=== PATIENT | female | born 1945 | race Caucasian/White ===

== ENCOUNTER 2016-06-21 22:26 | Emergency (ER) | payer OTHER ==
[~2016-06-21] VITALS: Ht 167.6 cm; Wt 101.4 kg
[~2016-06-21 22:26] MED LIST: ALBU8.5H3 INH; AMLO10TA2 PO; AMLO5TAB2 PO; BACL20TA PO; FAMO40TA4 PO; FLUT1DIS3; GABA300C10 PO; GEMF600T3 PO; HALO0.5T PO; HYDR1TAB12 PO; IBUP800T PO; LEVO500T33 PO; LOSA25TA5 PO; LOSA50TA6 PO; METF500T27 PO; MONT10TA9 PO; MULT-717 PO; OMEP20TA62 PO; RANI150C PO; TRAM50TA2 PO; VENL100T PO; VENL25TA PO; VENL37.57 PO; unknown bp med
[2016-06-22] LABS: PATH.CAST-FLAG NOT PRESENT; SPERM-FLAG NOT PRESENT; SRC-FLAG NOT PRESENT; XTAL-FLAG NOT PRESENT; YLC-FLAG NOT PRESENT
[2016-06-22 00:01] LABS: HEMOGLOBIN 12.9 g/dL (11.7-16.4)
[2016-06-22 00:13] LABS: ASPARTATE AMINO TRANSFERASE 16 U/L (15-37); BLOOD UREA NITROGEN 20 mg/dL (7-18)
[2016-06-22 00:15] VITALS: BP 133/69
[2016-06-22 00:18] LABS: IS PT STATUS REG ER OR PRE ER? YES
== END 2016-06-22 01:07 | disposition home or self-care (01) ==
LOC: ED 06-22 01:01
DX: R06.00 Dyspnea, unspecified (principal); R06.02 Shortness of breath; E11.9 Type 2 diabetes mellitus without complications; J45.909 Unspecified asthma, uncomplicated; I11.9 Hypertensive heart disease without heart failure
CPT/HCPCS: 36415; 71010; 80053; 81001; 83880; 84484; 85025; 85379; 85610; 85730; 87077; 87086; 87186; 93005

== ENCOUNTER 2016-07-13 18:13 | Emergency (ER) | payer OTHER ==
[~2016-07-13] VITALS: Ht 167.6 cm; Wt 99.1 kg
[~2016-07-13 18:13] MED LIST changes: -ACET1TAB64 PO
[2016-07-13] MEDS ORDERED: ACET1TAB64 PO (19:24)
[2016-07-13 19:35] LABS: HEMOGLOBIN 12.7 g/dL (11.7-16.4)
[2016-07-13 19:50] LABS: ASPARTATE AMINO TRANSFERASE 21 U/L (15-37); BLOOD UREA NITROGEN 30 mg/dL (7-18)
[2016-07-13 21:29] VITALS: BP 154/94
[2016-07-13] MEDS ORDERED: CEFDINIR 300 MG CAPSULE PO ONE (21:30)
== END 2016-07-13 21:35 | disposition home or self-care (01) ==
LOC: ED 21:22
DX: N30.90 Cystitis, unspecified without hematuria (principal); F32.9 Major depressive disorder, single episode, unspecified; K21.9 Gastro-esophageal reflux disease without esophagitis; J45.909 Unspecified asthma, uncomplicated; G62.9 Polyneuropathy, unspecified; G89.29 Other chronic pain; E11.9 Type 2 diabetes mellitus without complications; I11.9 Hypertensive heart disease without heart failure; Z90.710 Acquired absence of both cervix and uterus; Z90.49 Acquired absence of other specified parts of digestive tract; Z85.71 Personal history of Hodgkin lymphoma
CPT/HCPCS: 36415; 80053; 81001; 85025; 87077; 87086; 87186; 93005; 99285

== ENCOUNTER → 2016-07-13 | Outpatient (CLI) | payer OTHER ==
[~2016-07-13] MED LIST changes: +ACET1TAB64 PO
== END | disposition home or self-care (01) ==
LOC: CFH 08:58
PROVIDERS: ATTEND Family Medicine
DX: M79.9 Soft tissue disorder, unspecified (principal)
CPT/HCPCS: 76700

== ENCOUNTER 2016-07-31 21:34 | Emergency (ER) | payer OTHER ==
[~2016-07-31] VITALS: Ht 165.1 cm; Wt 98.1 kg
[~2016-07-31 21:34] MED LIST changes: +ACET1TAB64 PO
[2016-07-31 21:35] VITALS: BP 160/89
[2016-07-31] MEDS ORDERED: PHENAZOPYRIDINE 200 MG TABLET PO ONE (22:00)
[2016-07-31] MEDS ORDERED: PHENAZOPYRIDINE 200 MG TABLET ONE (22:16)
== END 2016-07-31 22:58 | disposition home or self-care (01) ==
LOC: ED 22:50
DX: N39.0 Urinary tract infection, site not specified (principal); R30.0 Dysuria; E11.9 Type 2 diabetes mellitus without complications; Z90.710 Acquired absence of both cervix and uterus; Z90.49 Acquired absence of other specified parts of digestive tract
CPT/HCPCS: 81001; 87077; 87086; 87186; 99284

== ENCOUNTER 2016-08-08 15:15 | Emergency (ER) | payer OTHER ==
[~2016-08-08] VITALS: Ht 167.6 cm; Wt 97.9 kg
[2016-08-08 16:15] LABS: BLOOD UREA NITROGEN 29 mg/dL (7-18)
[2016-08-08 17:04] VITALS: BP 121/71
== END 2016-08-08 17:15 | disposition home or self-care (01) ==
LOC: ED 17:13
DX: S00.83XA Contusion of other part of head, initial encounter (principal); E11.9 Type 2 diabetes mellitus without complications; I10 Essential (primary) hypertension; K21.9 Gastro-esophageal reflux disease without esophagitis; J45.909 Unspecified asthma, uncomplicated; Z90.710 Acquired absence of both cervix and uterus; Z90.49 Acquired absence of other specified parts of digestive tract; W18.30XA Fall on same level, unspecified, initial encounter; Y93.89 Activity, other specified; Y92.002 Bathroom of unspecified non-institutional (private) residence as the place of occurrence of the external cause; Y99.9 Unspecified external cause status
CPT/HCPCS: 36415; 70450; 80048; 82040; 85025; 93005; 99285

== ENCOUNTER → 2016-11-04 | Outpatient (CLI) | payer OTHER ==
[~2016-11-04] MED LIST changes: +FAMO40TA PO; -FAMO40TA4 PO
== END | disposition home or self-care (01) ==
LOC: CFH 13:16
PROVIDERS: ATTEND Family Medicine
DX: M54.5 Low back pain (principal); R29.6 Repeated falls; W19.XXXA Unspecified fall, initial encounter; Y93.89 Activity, other specified; Y92.89 Other specified places as the place of occurrence of the external cause; Y99.8 Other external cause status
CPT/HCPCS: 70450; 72110

== ENCOUNTER 2016-12-03 16:12 | Emergency (ER) | payer OTHER ==
[~2016-12-03] VITALS: Ht 157.5 cm; Wt 92.5 kg
[~2016-12-03 16:12] MED LIST changes: -ALBU8.5H3 INH; +ALBU8.5H8 INH; -FAMO40TA PO; +FAMO40TA4 PO; +IBUP-1223 PO; -IBUP800T PO; -LEVO500T33 PO; +LEVO500T47 PO
[2016-12-03 17:03] LABS: BLOOD UREA NITROGEN 29 mg/dL (7-18); HEMATOCRIT 35.9 % (34.6-47.8); HEMOGLOBIN 11.6 g/dL (11.7-16.4); WHITE BLOOD COUNT 7.3 x10^3/uL (3.4-10)
[2016-12-03 18:20] VITALS: BP 133/98
== END 2016-12-03 18:23 | disposition home or self-care (01) ==
LOC: ED 18:17
DX: F41.1 Generalized anxiety disorder (principal); J45.909 Unspecified asthma, uncomplicated; I10 Essential (primary) hypertension; E11.9 Type 2 diabetes mellitus without complications; G89.29 Other chronic pain; Z90.710 Acquired absence of both cervix and uterus; Z90.49 Acquired absence of other specified parts of digestive tract
CPT/HCPCS: 36415; 71010; 80048; 82040; 85025; 93005; 99285

== ENCOUNTER → 2017-09-06 | Outpatient (CLI) | payer OTHER | END | disposition home or self-care (01) | LOC: CFH 13:15 | PROVIDERS: ATTEND Family Medicine | DX: Z13.820 Encounter for screening for osteoporosis (principal); M85.80 Other specified disorders of bone density and structure, unspecified site; Z78.0 Asymptomatic menopausal state | CPT/HCPCS: 77080 ==

== ENCOUNTER 2018-02-11 12:09 | Inpatient (IN) | payer OTHER ==
[~2018-02-11] VITALS: Ht 167.6 cm; Wt 91.5 kg
[~2018-02-11 12:09] MED LIST changes: -AMLO10TA2 PO; +AMLO10TA6 PO; -AMLO5TAB2 PO; +AMLO5TAB7 PO; +CEPH-368 PO; +DICL75TA2 PO; +GEMF600T PO; -GEMF600T3 PO; +GEMF600T4 PO; +IBUP-1222 PO; +INSU100I11 SQ-INSULIN; -LOSA25TA5 PO; +LOSA25TA6 PO; -LOSA50TA6 PO; +LOSA50TA7 PO; +MELO15TA24 PO; +NITR100C6 PO; +POLY17PO5 PO; +SENN1TAB8 PO; +TRAM100T33 PO
[2018-02-11] MEDS ORDERED: ONDANSETRON 2MG/ML, 2ML ONE (12:39)
[2018-02-11] MEDS ORDERED: FAMOTIDINE 20 MG/2 ML ONE (12:39)
[2018-02-11 12:49] LABS: BASOPHILS # (AUTO) 0.01 x10^3/uL (0-0.1); BASOPHILS % (AUTO) 0 % (0-1); EOSINOPHILS # (AUTO) 0.04 x10^3/uL (0-0.4); EOSINOPHILS % (AUTO) 1 % (1-7); LYMPHOCYTES # (AUTO) 1.08 x10^3/uL (1-3.4); LYMPHOCYTES % (AUTO) 21 % (22-44); MD NO; MEAN CORPUSCULAR HEMOGLOBIN 28.3 pg (27.0-34.8); MEAN CORPUSCULAR VOLUME 85.8 fL (80-100); MEAN PLATELET VOLUME 8.7 fL (7.4-10.4); MONOCYTES # (AUTO) 0.42 x10^3/uL (0.2-0.8); MONOCYTES % (AUTO) 8 % (2-9); NEUTROPHILS # (AUTO) 3.69 x10^3/uL (1.8-6.8); NEUTROPHILS % (AUTO) 71 % (42-75); PLATELET COUNT 256 x10^3/uL (130-400); RED BLOOD COUNT 4.66 x10^6/uL (3.82-5.3); RED CELL DISTRIBUTION WIDTH 14.9 % (9.6-15.2)
[2018-02-11 13:00] LABS: ALANINE AMINOTRANSFERASE 31 U/L (12-78); ALBUMIN 3.3 g/dL (3.4-5.0); ANION GAP 10 mmol/L (5-15); CALCIUM 8.8 mg/dL (8.5-10.1); CHLORIDE 108 mmol/L (98-107); CREATININE 0.99 mg/dL (0.55-1.02)
[2018-02-11] MEDS ORDERED: ONDANSETRON 2MG/ML, 2ML IVPush ONE (13:00)
[2018-02-11] MEDS ORDERED: SODIUM CHLORIDE FLUSH 10ML SYR IVF ONE (13:00)
[2018-02-11] MEDS ORDERED: FAMOTIDINE 20 MG/2 ML IVP ONE (13:00)
[2018-02-11] MEDS ORDERED: SODIUM CHLORIDE 0.9% 1,000ML IVBOLUS ONE (13:00)
[2018-02-11 13:02] LABS: ALKALINE PHOSPHATASE 106 U/L (45-117); BILIRUBIN,TOTAL 0.5 mg/dL (0.2-1.0); TOTAL PROTEIN 7.5 g/dL (6.4-8.2)
[2018-02-11] MEDS ORDERED: DIPHENHYDRAMINE 50 MG/ML, 1ML IVPush ONE (13:30)
[2018-02-11] MEDS: MORPHINE SULFATE 4 MG/ML, 1ML IVPush PRN ×2 (13:55→15:24)
[2018-02-11] MEDS ORDERED: DIPHENHYDRAMINE 50 MG/ML, 1ML ONE (13:59)
[2018-02-11] MEDS ORDERED: OMNIPAQUE 350 MG/ML, 100ML BOTTLE ONE (14:30)
[2018-02-11 14:43] LABS: MICROSCOPIC AUTO
[2018-02-11 14:51] LABS: CULTURE INDICATED? YES
[2018-02-11] MEDS ORDERED: CEFTRIAXONE PMX 1GM/50ML 50 ML IV ONE (15:00)
[2018-02-11] MEDS ORDERED: NS + 20MEQ KCL 1,000 ML IV SCH (15:06)
[2018-02-11] MEDS ORDERED: MORPHINE SULFATE 4 MG/ML, 1ML ONE (15:18)
[2018-02-11] MEDS ORDERED: CEFTRIAXONE PMX 1GM/50ML 50 ML ONE (15:18)
[2018-02-11] MEDS ORDERED: GLUCAGON 1 MG IM PRN (15:30)
[2018-02-11] MEDS ORDERED: DEXTROSE 4 GM TAB.CHEW PO PRN (15:30)
[2018-02-11] MEDS ORDERED: MORPHINE SULFATE 4 MG/ML, 1ML IVPush PRN (15:30)
[2018-02-11] MEDS ORDERED: POLYETHYLENE GLYCOL 17 GM PACKET PO PRN (15:30)
[2018-02-11] MEDS ORDERED: DOCUSATE 100 MG CAPSULE PO PRN (15:30)
[2018-02-11] MEDS ORDERED: ACETAMINOPHEN 325 MG TABLET PO PRN (15:30)
[2018-02-11] MEDS ORDERED: DEXTROSE 50%, 50ML SYRINGE IVPush PRN (15:30)
[2018-02-11] MEDS: INSULIN LISPRO 100 UNITS/ML, PEN SQ-INSULIN SCH ×2 (16:00→20:30)
[2018-02-11 17:53] VITALS: BP 138/93
[2018-02-11] MEDS ORDERED: ALBUTEROL SULFATE 2.5 MG/3 ML NPPB PRN (18:00)
[2018-02-11] MEDS: GABAPENTIN 300 MG CAPSULE PO SCH ×2 (18:15→20:30)
[2018-02-11] MEDS: ENOXAPARIN 40 MG/0.4 ML SQ SCH (18:15)
[2018-02-11] MEDS: ONDANSETRON 2MG/ML, 2ML IVPush PRN (19:29)
[2018-02-11] MEDS: SODIUM CHLORIDE FLUSH 10ML SYR IVF SCH (19:29)
[2018-02-11] MEDS ORDERED: [UNRECOGNIZED DRUG - CODE] PO (19:29)
[2018-02-11 20:25] VITALS: BP 127/81
[2018-02-11] MEDS: BACLOFEN 10 MG TABLET PO SCH (20:29)
[2018-02-11] MEDS: metFORMIN 500 MG TABLET PO SCH (20:29)
[2018-02-11] MEDS: VENLAFAXINE 50MG TABLET PO SCH (20:30)
[2018-02-12 01:36] VITALS: BP 113/74
[2018-02-12 05:02] LABS: ANION GAP 7 mmol/L (5-15); CALCIUM 8.8 mg/dL (8.5-10.1); CHLORIDE 110 mmol/L (98-107)
[2018-02-12 05:03] LABS: CREATININE 0.97 mg/dL (0.55-1.02)
[2018-02-12] MEDS: INSULIN LISPRO 100 UNITS/ML, PEN SQ-INSULIN SCH ×4 (07:00→21:00)
[2018-02-12 07:48] VITALS: BP 140/87
[2018-02-12] MEDS: SODIUM CHLORIDE FLUSH 10ML SYR IVF SCH ×2 (08:13→21:16)
[2018-02-12] MEDS: MONTELUKAST 10 MG TABLET PO SCH (08:14)
[2018-02-12] MEDS: BACLOFEN 10 MG TABLET PO SCH ×2 (08:14→21:15)
[2018-02-12] MEDS: SENNA/DOCUSATE TABLET PO SCH (08:14)
[2018-02-12] MEDS: LOSARTAN 50MG TABLET PO SCH (08:15)
[2018-02-12] MEDS: GABAPENTIN 300 MG CAPSULE PO SCH ×3 (08:15→21:15)
[2018-02-12] MEDS: MELOXICAM 15 MG TABLET PO SCH (08:15)
[2018-02-12] MEDS: metFORMIN 500 MG TABLET PO SCH ×2 (08:15→21:00)
[2018-02-12] MEDS: VENLAFAXINE 50MG TABLET PO SCH ×2 (08:15→21:16)
[2018-02-12 09:05] LABS: CLOSTRIDIUM DIFFICILE ANTIGEN NEGATIVE; CLOSTRIDIUM DIFFICILE TOXIN NEGATIVE (Negative)
[2018-02-12 12:25] VITALS: BP 116/63
[2018-02-12] MEDS: ONDANSETRON 2MG/ML, 2ML IVPush PRN (13:16)
[2018-02-12] MEDS: ENOXAPARIN 40 MG/0.4 ML SQ SCH (16:25)
[2018-02-12 19:45] VITALS: BP 125/81
[2018-02-13 00:06] VITALS: BP 147/76
[2018-02-13] MEDS: INSULIN LISPRO 100 UNITS/ML, PEN SQ-INSULIN SCH ×4 (07:00→20:52)
[2018-02-13] MEDS: SENNA/DOCUSATE TABLET PO SCH (08:30)
[2018-02-13] MEDS: metFORMIN 500 MG TABLET PO SCH ×2 (08:30→20:54)
[2018-02-13] MEDS: MELOXICAM 15 MG TABLET PO SCH (08:33)
[2018-02-13] MEDS: MONTELUKAST 10 MG TABLET PO SCH (08:33)
[2018-02-13] MEDS: LOSARTAN 50MG TABLET PO SCH (08:33)
[2018-02-13] MEDS: GABAPENTIN 300 MG CAPSULE PO SCH ×3 (08:33→20:52)
[2018-02-13] MEDS: VENLAFAXINE 50MG TABLET PO SCH ×2 (08:33→20:52)
[2018-02-13] MEDS: BACLOFEN 10 MG TABLET PO SCH ×2 (08:33→20:52)
[2018-02-13] MEDS: SODIUM CHLORIDE FLUSH 10ML SYR IVF SCH ×2 (08:34→20:54)
[2018-02-13] MEDS: ONDANSETRON 2MG/ML, 2ML IVPush PRN (09:28)
[2018-02-13] MEDS: CEFTRIAXONE PMX 2GM/50ML 50 ML IVPB SCH (09:28)
[2018-02-13 09:44] VITALS: BP 122/83
[2018-02-13] MEDS: SUMATRIPTAN 6MG/0.5ML SQ PRN (11:47)
[2018-02-13 13:56] VITALS: BP 120/77
[2018-02-13] MEDS: ENOXAPARIN 40 MG/0.4 ML SQ SCH (15:58)
[2018-02-13 19:12] VITALS: BP 126/83
[2018-02-14 01:49] VITALS: BP 140/79
[2018-02-14] MEDS: INSULIN LISPRO 100 UNITS/ML, PEN SQ-INSULIN SCH ×4 (07:00→21:20)
[2018-02-14 07:13] VITALS: BP 119/75
[2018-02-14] MEDS: SENNA/DOCUSATE TABLET PO SCH (09:00)
[2018-02-14] MEDS: metFORMIN 500 MG TABLET PO SCH ×2 (09:00→21:25)
[2018-02-14] MEDS: CEFTRIAXONE PMX 2GM/50ML 50 ML IVPB SCH (09:15)
[2018-02-14] MEDS: ONDANSETRON 2MG/ML, 2ML IVPush PRN (09:15)
[2018-02-14] MEDS: MONTELUKAST 10 MG TABLET PO SCH (09:17)
[2018-02-14] MEDS: MELOXICAM 15 MG TABLET PO SCH (09:17)
[2018-02-14] MEDS: LOSARTAN 50MG TABLET PO SCH (09:17)
[2018-02-14] MEDS: GABAPENTIN 300 MG CAPSULE PO SCH ×3 (09:17→21:25)
[2018-02-14] MEDS: VENLAFAXINE 50MG TABLET PO SCH ×2 (09:17→21:25)
[2018-02-14] MEDS: BACLOFEN 10 MG TABLET PO SCH ×2 (09:18→21:25)
[2018-02-14] MEDS: SODIUM CHLORIDE FLUSH 10ML SYR IVF SCH ×2 (09:18→21:00)
[2018-02-14] MEDS: SUMATRIPTAN 6MG/0.5ML SQ PRN (09:59)
[2018-02-14] MEDS ORDERED: DEXAMETHASONE 4 MG/ML, 5ML IVPush ONE (11:30)
[2018-02-14] MEDS ORDERED: PROMETHAZINE 25MG TABLET PO PRN (11:30)
[2018-02-14] MEDS ORDERED: DEXAMETHASONE 4 MG/ML, 1ML ONE (12:24)
[2018-02-14 12:51] VITALS: BP 113/76
[2018-02-14] MEDS: ENOXAPARIN 40 MG/0.4 ML SQ SCH (16:37)
[2018-02-14 18:33] VITALS: BP 141/80
[2018-02-15 01:14] VITALS: BP 130/54
[2018-02-15] MEDS: INSULIN LISPRO 100 UNITS/ML, PEN SQ-INSULIN SCH ×3 (07:00→15:38)
[2018-02-15 07:49] VITALS: BP 114/73
[2018-02-15] MEDS: SODIUM CHLORIDE FLUSH 10ML SYR IVF SCH (09:00)
[2018-02-15] MEDS: SENNA/DOCUSATE TABLET PO SCH (09:00)
[2018-02-15] MEDS: MELOXICAM 15 MG TABLET PO SCH (09:17)
[2018-02-15] MEDS: GABAPENTIN 300 MG CAPSULE PO SCH ×2 (09:17→15:38)
[2018-02-15] MEDS: LOSARTAN 50MG TABLET PO SCH (09:18)
[2018-02-15] MEDS: metFORMIN 500 MG TABLET PO SCH (09:19)
[2018-02-15] MEDS: VENLAFAXINE 50MG TABLET PO SCH (09:20)
[2018-02-15] MEDS: BACLOFEN 10 MG TABLET PO SCH (09:29)
[2018-02-15] MEDS: CEFTRIAXONE PMX 2GM/50ML 50 ML IVPB SCH (09:29)
[2018-02-15] MEDS: MONTELUKAST 10 MG TABLET PO SCH (09:29)
[2018-02-15] MEDS ORDERED: SULF1TAB24 PO (13:11)
[2018-02-15 14:00] VITALS: BP 113/71
[2018-02-15] MEDS: ENOXAPARIN 40 MG/0.4 ML SQ SCH (15:38)
== END 2018-02-15 18:03 | disposition home or self-care (01) | DRG 690 ==
LOC: ED 15:31 → EDIP 15:32 → 3NW 17:43
PROVIDERS: ADMIT Family Medicine; ATTEND Family Medicine
PROC: 0T9B70Z Drainage of Bladder with Drainage Device, Via Natural or Artificial Opening (ICD-10-PCS; principal; 2018-02-11)
DX: N10 Acute pyelonephritis (principal); C85.90 Non-Hodgkin lymphoma, unspecified, unspecified site; E11.22 Type 2 diabetes mellitus with diabetic chronic kidney disease; E11.42 Type 2 diabetes mellitus with diabetic polyneuropathy; F41.1 Generalized anxiety disorder; B96.89 Other specified bacterial agents as the cause of diseases classified elsewhere; E11.65 Type 2 diabetes mellitus with hyperglycemia; Z68.32 Body mass index [BMI] 32.0-32.9, adult; F32.9 Major depressive disorder, single episode, unspecified; G43.901 Migraine, unspecified, not intractable, with status migrainosus; G44.209 Tension-type headache, unspecified, not intractable; E66.9 Obesity, unspecified; G89.29 Other chronic pain; I13.10 Hypertensive heart and chronic kidney disease without heart failure, with stage 1 through stage 4 chronic kidney disease, or unspecified chronic kidney disease; J45.909 Unspecified asthma, uncomplicated; F41.9 Anxiety disorder, unspecified; K21.9 Gastro-esophageal reflux disease without esophagitis; N18.9 Chronic kidney disease, unspecified; N30.90 Cystitis, unspecified without hematuria; Z82.3 Family history of stroke; Z82.49 Family history of ischemic heart disease and other diseases of the circulatory system; Z90.710 Acquired absence of both cervix and uterus; Z90.49 Acquired absence of other specified parts of digestive tract; Z88.8 Allergy status to other drugs, medicaments and biological substances; Z88.6 Allergy status to analgesic agent
CPT/HCPCS: 36415; 74177; 80048; 80053; 81001; 82962; 83605; 83690; 83735; 85025; 87077; 87086; 87186; 87324; 89055; 96365; 96375; 99285; G0378; J0696; J1100; J1650; J2405; J3480; Q9967; J1200; J3030; J3490; J7030

== ENCOUNTER 2018-03-25 18:27 | Inpatient (IN) | payer OTHER ==
[~2018-03-25 18:27] MED LIST changes: +AMLO-150 PO; -AMLO5TAB7 PO; +SULF1TAB24 PO; +[UNRECOGNIZED DRUG - CODE] PO
[2018-03-25 20:13] LABS: MEAN CORPUSCULAR HEMOGLOBIN 28.5 pg (27.0-34.8); MEAN CORPUSCULAR HGB CONC 33.2 g/dL (32.4-35.8); MEAN CORPUSCULAR VOLUME 85.9 fL (80-100); MEAN PLATELET VOLUME 9.1 fL (7.4-10.4); PLATELET COUNT 203 x10^3/uL (130-400); RED CELL DISTRIBUTION WIDTH 15.4 % (9.6-15.2)
[2018-03-25 20:25] LABS: ALANINE AMINOTRANSFERASE 24 U/L (12-78); ALBUMIN 3.2 g/dL (3.4-5.0); ANION GAP 10 mmol/L (5-15); CALCIUM 8.8 mg/dL (8.5-10.1); CHLORIDE 107 mmol/L (98-107); CREATININE 2.35 mg/dL (0.55-1.02)
[2018-03-25 20:30] LABS: ALKALINE PHOSPHATASE 104 U/L (45-117); BILIRUBIN,TOTAL 0.6 mg/dL (0.2-1.0); TOTAL PROTEIN 7.6 g/dL (6.4-8.2); TROPONIN I < 0.015 ng/mL (0.000-0.045)
[2018-03-25 20:31] LABS: BASOPHILS % (AUTO) 0 % (0-1); EOSINOPHILS % (AUTO) 0 % (1-7); LYMPHOCYTES % (AUTO) 4 % (22-44); MD SCAN; MONOCYTES % (AUTO) 5 % (2-9); NEUTROPHILS # (AUTO) 16.66 x10^3/uL (1.8-6.8); NEUTROPHILS % (AUTO) 91 % (42-75)
[2018-03-25 20:44] LABS: MICROSCOPIC INDICATED
[2018-03-25 20:57] LABS: CULTURE INDICATED? YES
[2018-03-25] MEDS ORDERED: SODIUM CHLORIDE 0.9% 1,000ML IVBOLUS ONE ×2 (21:00→21:30)
[2018-03-25] MEDS ORDERED: PIPERACILLIN/TAZO/PMX 3.375GM 50 ML IVPB ONE (21:00)
[2018-03-25] MEDS ORDERED: VANCOMYCIN PER PHARMACY IV ONE (21:00)
[2018-03-25] MEDS ORDERED: PIPERACILLIN/TAZO/PMX 3.375GM 50 ML ONE (21:03)
[2018-03-25] MEDS ORDERED: SODIUM CHLORIDE 0.9% 1,000 ML IV ONE (21:26)
[2018-03-25] MEDS ORDERED: ONDANSETRON 2MG/ML, 2ML IVPush PRN ×2 (21:30→22:00)
[2018-03-25] MEDS ORDERED: PHARMACOKINETIC CONSULTATION MC ONE (21:30)
[2018-03-25] MEDS: INSULIN LISPRO 100 UNITS/ML, PEN SQ-INSULIN SCH (22:00)
[2018-03-25] MEDS ORDERED: GABAPENTIN 300 MG CAPSULE PO PRN (22:00)
[2018-03-25] MEDS ORDERED: hydrALAzine 20 MG/ML, 1ML IVPush PRN (22:00)
[2018-03-25] MEDS ORDERED: LABETALOL 5MG/ML, 20ML IVPush PRN (22:00)
[2018-03-25] MEDS ORDERED: VANCOMYCIN 1,600 MG in SODIUM CHLORIDE 0.9% 250 ML IV ONE (22:00)
[2018-03-25] MEDS ORDERED: DOCUSATE 100 MG CAPSULE PO PRN (22:00)
[2018-03-25] MEDS ORDERED: ONDANSETRON ODT 4 MG PO PRN (22:00)
[2018-03-25] MEDS ORDERED: POLYETHYLENE GLYCOL 17 GM PACKET PO PRN (22:00)
[2018-03-25] MEDS ORDERED: BISACODYL 10 MG SUPP PR PRN (22:00)
[2018-03-25] MEDS ORDERED: PROMETHAZINE 25 MG/ML, 1ML IM PRN (22:00)
[2018-03-25 22:08] LABS: FREE T4 (FREE THYROXINE) 1.1 ng/dL (0.76-1.46); THYROID STIMULATING HORMONE 1.25 mIU/L (0.358-3.740)
[2018-03-25 22:11] LABS: HEMOGLOBIN A1C 5.2 % (4.2-6.3)
[2018-03-25 23:40] VITALS: BP 129/77
[2018-03-26] MEDS: HEPARIN 5,000 UNITS/ML, 1ML SQ SCH ×4 (00:11→23:51)
[2018-03-26] MEDS: SODIUM CHLORIDE 0.9% 1,000 ML IV SCH ×2 (00:12→08:27)
[2018-03-26 02:32] VITALS: BP 114/60
[2018-03-26 06:02] LABS: BASOPHILS % (AUTO) 0 % (0-1); EOSINOPHILS # (AUTO) 0.01 x10^3/uL (0-0.4); EOSINOPHILS % (AUTO) 0 % (1-7); LYMPHOCYTES # (AUTO) 1.06 x10^3/uL (1-3.4); LYMPHOCYTES % (AUTO) 8 % (22-44); MD NO; MEAN CORPUSCULAR HEMOGLOBIN 28.5 pg (27.0-34.8); MEAN CORPUSCULAR HGB CONC 33.3 g/dL (32.4-35.8); MEAN CORPUSCULAR VOLUME 85.6 fL (80-100); MEAN PLATELET VOLUME 9.3 fL (7.4-10.4); MONOCYTES # (AUTO) 0.97 x10^3/uL (0.2-0.8); MONOCYTES % (AUTO) 7 % (2-9); NEUTROPHILS # (AUTO) 11.13 x10^3/uL (1.8-6.8); NEUTROPHILS % (AUTO) 85 % (42-75); PLATELET COUNT 226 x10^3/uL (130-400); RED BLOOD COUNT 4.53 x10^6/uL (3.82-5.3); RED CELL DISTRIBUTION WIDTH 14.8 % (9.6-15.2)
[2018-03-26 06:08] LABS: ALBUMIN 2.7 g/dL (3.4-5.0); ANION GAP 9 mmol/L (5-15); CHLORIDE 112 mmol/L (98-107)
[2018-03-26 06:12] LABS: ALANINE AMINOTRANSFERASE 20 U/L (12-78); ALKALINE PHOSPHATASE 78 U/L (45-117); BILIRUBIN,TOTAL 0.6 mg/dL (0.2-1.0); CHOL/HDL RATIO 2.9; CHOLESTEROL, TOTAL 133 mg/dL (140-239); CREATININE 1.34 mg/dL (0.55-1.02); HDL CHOL % 35 % (28-40); HDL CHOLESTEROL (DIRECT) 46 mg/dL (40-60); LDL CHOLESTEROL,CALCULATED 61 mg/dL (54-169); LDL/HDL RATIO 1.3 (0.5-3.0); TOTAL PROTEIN 6.4 g/dL (6.4-8.2); TRIGLYCERIDES 132 mg/dL (50-200); VLDL CHOLESTEROL 26 mg/dL (0-25)
[2018-03-26 06:35] VITALS: BP 115/81
[2018-03-26] MEDS: INSULIN LISPRO 100 UNITS/ML, PEN SQ-INSULIN SCH ×4 (07:00→21:00)
[2018-03-26] MEDS: LACTOBACILLUS CHEW TABLET PO SCH ×3 (08:39→21:00)
[2018-03-26] MEDS: ACETAMINOPHEN 325 MG TABLET PO PRN (08:42)
[2018-03-26 13:12] VITALS: BP 133/87
[2018-03-26] MEDS: PIPERACILLIN/TAZO/PMX 3.375GM 50 ML IV SCH ×3 (13:35→23:50)
[2018-03-26] MEDS: GABAPENTIN 300 MG CAPSULE PO SCH ×3 (16:00→21:27)
[2018-03-26 17:40] LABS: CLOSTRIDIUM DIFFICILE ANTIGEN NEGATIVE; CLOSTRIDIUM DIFFICILE TOXIN NEGATIVE (Negative)
[2018-03-26] MEDS ORDERED: SODIUM CHLORIDE 0.9%, 500ML IVBOLUS ONE (18:00)
[2018-03-26] MEDS ORDERED: SODIUM CHLORIDE 0.9% 1,000 ML IV SCH (18:00)
[2018-03-26] MEDS ORDERED: DEXTROSE 4 GM TAB.CHEW PO PRN (18:00)
[2018-03-26] MEDS ORDERED: GLUCAGON 1 MG IM PRN (18:00)
[2018-03-26] MEDS ORDERED: DEXTROSE 50%, 50ML SYRINGE IVPush PRN (18:00)
[2018-03-26 18:47] VITALS: BP 146/84
[2018-03-26] MEDS: SODIUM CHLORIDE FLUSH 10ML SYR IVF SCH (21:00)
[2018-03-26] MEDS: BUPROPION 100 MG TABLET PO SCH (21:27)
[2018-03-26] MEDS: VENLAFAXINE 50MG TABLET PO SCH (21:32)
[2018-03-27 01:19] VITALS: BP 132/76
[2018-03-27] MEDS: PIPERACILLIN/TAZO/PMX 3.375GM 50 ML IV SCH (05:43)
[2018-03-27 06:23] VITALS: BP 145/85
[2018-03-27] MEDS: INSULIN LISPRO 100 UNITS/ML, PEN SQ-INSULIN SCH ×4 (06:26→21:14)
[2018-03-27] MEDS: HEPARIN 5,000 UNITS/ML, 1ML SQ SCH ×2 (08:26→17:03)
[2018-03-27] MEDS: GABAPENTIN 300 MG CAPSULE PO SCH ×3 (08:26→21:14)
[2018-03-27] MEDS: SODIUM CHLORIDE FLUSH 10ML SYR IVF SCH ×2 (08:26→21:18)
[2018-03-27] MEDS: BUPROPION 100 MG TABLET PO SCH ×2 (08:27→21:14)
[2018-03-27] MEDS: LACTOBACILLUS CHEW TABLET PO SCH ×3 (08:27→21:15)
[2018-03-27] MEDS: MONTELUKAST 10 MG TABLET PO SCH (08:27)
[2018-03-27] MEDS: VENLAFAXINE 50MG TABLET PO SCH ×2 (08:27→21:14)
[2018-03-27] MEDS ORDERED: CEFDINIR 300 MG CAPSULE PO SCH (11:00)
[2018-03-27 12:15] VITALS: BP 141/84
[2018-03-27] MEDS ORDERED: OMEPRAZOLE 20 MG CAPSULE.DR ONE (13:35)
[2018-03-27] MEDS: OMEPRAZOLE 20 MG CAPSULE.DR PO SCH ×2 (13:37→21:15)
[2018-03-27] MEDS ORDERED: LOPERAMIDE 2 MG CAPSULE PO PRN (17:45)
[2018-03-27 19:20] VITALS: BP 135/77
[2018-03-27] MEDS: SULFAMETH./TRIMETHOPRIM DS 800MG/160MG TABLET PO SCH (21:14)
[2018-03-28] MEDS: HEPARIN 5,000 UNITS/ML, 1ML SQ SCH ×2 (00:44→08:20)
[2018-03-28 02:05] VITALS: BP 132/87
[2018-03-28] MEDS: INSULIN LISPRO 100 UNITS/ML, PEN SQ-INSULIN SCH ×2 (06:15→11:00)
[2018-03-28] MEDS: OMEPRAZOLE 20 MG CAPSULE.DR PO SCH (06:15)
[2018-03-28] MEDS: MONTELUKAST 10 MG TABLET PO SCH (08:20)
[2018-03-28] MEDS: GABAPENTIN 300 MG CAPSULE PO SCH (08:20)
[2018-03-28] MEDS: LACTOBACILLUS CHEW TABLET PO SCH (08:20)
[2018-03-28] MEDS: BUPROPION 100 MG TABLET PO SCH (08:20)
[2018-03-28] MEDS: SULFAMETH./TRIMETHOPRIM DS 800MG/160MG TABLET PO SCH (08:20)
[2018-03-28] MEDS: SODIUM CHLORIDE FLUSH 10ML SYR IVF SCH (08:21)
[2018-03-28] MEDS: VENLAFAXINE 50MG TABLET PO SCH (08:21)
[2018-03-28 08:39] VITALS: BP 141/95
[2018-03-28] MEDS: ACETAMINOPHEN 325 MG TABLET PO PRN (11:07)
[2018-03-28] MEDS ORDERED: SULF-169 PO (12:50)
[2018-03-28 13:49] VITALS: BP 156/105
== END 2018-03-28 16:00 | disposition home health service (06) | DRG 871 ==
LOC: ED 19:30 → EDIP 21:27 → 4NOR 23:40
PROVIDERS: ADMIT Internal Medicine; ATTEND Internal Medicine
DX: A41.9 Sepsis, unspecified organism (principal); N17.0 Acute kidney failure with tubular necrosis; R65.21 Severe sepsis with septic shock; E44.0 Moderate protein-calorie malnutrition; G93.40 Encephalopathy, unspecified; M48.54XA Collapsed vertebra, not elsewhere classified, thoracic region, initial encounter for fracture; E87.2 Acidosis; N30.00 Acute cystitis without hematuria; E66.9 Obesity, unspecified; F32.9 Major depressive disorder, single episode, unspecified; M47.812 Spondylosis without myelopathy or radiculopathy, cervical region; M85.80 Other specified disorders of bone density and structure, unspecified site; W18.30XA Fall on same level, unspecified, initial encounter; Z85.72 Personal history of non-Hodgkin lymphomas; D64.9 Anemia, unspecified; E11.9 Type 2 diabetes mellitus without complications; F41.1 Generalized anxiety disorder; I10 Essential (primary) hypertension; J45.20 Mild intermittent asthma, uncomplicated; K21.9 Gastro-esophageal reflux disease without esophagitis; K44.9 Diaphragmatic hernia without obstruction or gangrene; M51.36 Other intervertebral disc degeneration, lumbar region; Z80.41 Family history of malignant neoplasm of ovary; Z85.71 Personal history of Hodgkin lymphoma; Z87.440 Personal history of urinary (tract) infections; Z90.710 Acquired absence of both cervix and uterus; Z92.21 Personal history of antineoplastic chemotherapy; G62.9 Polyneuropathy, unspecified; G89.29 Other chronic pain; Z88.8 Allergy status to other drugs, medicaments and biological substances
CPT/HCPCS: 36415; 70450; 71045; 72110; 72125; 72170; 80053; 80061; 81001; 82306; 82607; 82962; 83036; 83605; 83735; 84145; 84439; 84443; 84484; 85025; 87040; 87046; 87077; 87086; 87186; 87324; 87427; 93005; 96365; 99291; G0378; J1644; J2405; J2543; J7030; J7040